=== PATIENT | female | born 1965 | race Caucasian/White ===

== ENCOUNTER → 2024-10-22 16:49 | Outpatient (REF) | payer BC, SELFPAY | LOC: RAD 16:49 | PROVIDERS: ATTENDING PHYSICIAN Internal Medicine | DX: M25.562 Pain in left knee (principal); M54.12 Radiculopathy, cervical region | CPT/HCPCS: 72050; 73564 ==

== ENCOUNTER 2024-11-14 16:58 | Outpatient (RCR) | payer BC, SELFPAY | END 2024-11-14 23:59 | disposition home or self-care (01) | LOC: RPT 16:58 | PROVIDERS: ATTENDING PHYSICIAN Internal Medicine | DX: M54.12 Radiculopathy, cervical region (principal); M25.562 Pain in left knee; Z73.6 Limitation of activities due to disability | CPT/HCPCS: 97110; 97112; 97163 ==

== ENCOUNTER 2024-12-12 16:14 | Outpatient (RCR) | payer BC, SELFPAY | END 2024-12-12 23:59 | disposition home or self-care (01) | LOC: RPT 16:14 | PROVIDERS: ATTENDING PHYSICIAN Internal Medicine | DX: M54.12 Radiculopathy, cervical region (principal); M25.562 Pain in left knee; Z73.6 Limitation of activities due to disability; M62.81 Muscle weakness (generalized) | CPT/HCPCS: 97010; 97110; 97112; 97530 ==

== ENCOUNTER 2025-01-14 17:11 | Outpatient (RCR) | payer BC, SELFPAY | END 2025-01-14 23:59 | disposition home or self-care (01) | LOC: RPT 17:11 | PROVIDERS: ATTENDING PHYSICIAN Internal Medicine | DX: M54.12 Radiculopathy, cervical region (principal); M25.562 Pain in left knee; Z73.6 Limitation of activities due to disability; M62.81 Muscle weakness (generalized) | CPT/HCPCS: 97010; 97110; 97112; 97530 ==

== ENCOUNTER 2025-02-06 16:06 | Outpatient (RCR) | payer BC, SELFPAY | END 2025-02-07 06:55 | disposition home or self-care (01) | LOC: RPT 16:06 | PROVIDERS: ATTENDING PHYSICIAN Internal Medicine | DX: M54.12 Radiculopathy, cervical region (principal); M25.562 Pain in left knee; Z73.6 Limitation of activities due to disability; M62.81 Muscle weakness (generalized) | CPT/HCPCS: 97110; 97530 ==